=== PATIENT | male | born 1980 | race Caucasian/White ===

== ENCOUNTER 2016-06-10 10:52 | Observation (INO) | payer OTHER ==
--- NOTE | 2016-06-10 11:21 | ERPHSYRPT ---
- History of Present Illness Time Seen by Provider: 06/10/16 11:11 Source: patient, family (mom) Exam Limitations: no limitations Patient Subjective Stated Complaint: PT REPORTS ABCESS TO LEFT GROIN AREA BEGINNING FEW DAYS AGO-REPORTS DRAINAGE OF BROWN-UNSURE OF FEVER Triage Nursing Assessment: PT PINK WARM ET DRY-A & O X 3-HARDENED AREA NOTED- BLOODY DRAINAGE NOTED Physician History: The patient is a 36-year-old male with his mother complaining of an abscess left groin and is been present for at least a week. He states he has a history of small abscesses over his body ever since he was in high school. About 3 days ago he incised the abscess 3 or 4 times with a needle and purulent material was expelled. Since that time only bloody material has been coming out of the wound. The tract of the wound is expanding. He has taken some old amoxicillin for the past few days without any improvement. He denies fever or chills. Timing/Duration: week(s) (1) Quality: painful Severity: severe Location: other (left groin) Possible Causes: no cause identified Associated Symptoms: rash Allergies/Adverse Reactions: No Known Drug Allergies Allergy (Unverified 06/10/16 11:03) Home Medications: No Home Meds 1 ea UD 06/10/16 [History] Hx Tetanus, Diphtheria Vaccination/Date Given: No Hx Influenza Vaccination/Date Given: No Hx Pneumococcal Vaccination/Date Given: No Immunizations Up to Date: Yes - Review of Systems Constitutional: No Fever, No Chills Eyes: No Symptoms Ears, Nose, & Throat: No Symptoms Respiratory: No Cough, No Dyspnea Cardiac: No Chest Pain, No Edema, No Syncope Abdominal/Gastrointestinal: No Abdominal Pain, No Nausea, No Vomiting, No Diarrhea Genitourinary Symptoms: No Dysuria Musculoskeletal: No Back Pain, No Neck Pain Skin: Rash, Other (abscess) Neurological: No Dizziness, No Focal Weakness, No Sensory Changes Psychological: No Symptoms Endocrine: No Symptoms Hematologic/Lymphatic: No Symptoms Immunological/Allergic: No Symptoms All Other Systems: Reviewed and Negative - Past Medical History Pertinent Past Medical History: Yes Cardiac History: Hypertension - Past Surgical History Past Surgical History: Yes - Social History Smoking Status: Current every day smoker How long have you smoked: YRS Drug Use: none Patient Lives Alone: No - Nursing Vital Signs Nursing Vital Signs: Initial Vital Signs Temperature 98.1 F Temperature Source Oral Pulse Rate 90 Respiratory Rate 22 Blood Pressure 160/68 Pain Intensity 2 - Physical Exam General Appearance: no apparent distress, alert Eye Exam: PERRL/EOMI, eyes nml inspection Ears, Nose, Throat Exam: normal ENT inspection, pharynx normal, moist mucous membranes Neck Exam: normal inspection, non-tender, supple, full range of motion Respiratory Exam: normal breath sounds, lungs clear, No respiratory distress Cardiovascular Exam: regular rate/rhythm, normal heart sounds Gastrointestinal/Abdomen Exam: soft, mass, No tenderness Rectal Exam: not done Back Exam: normal inspection, normal range of motion, No CVA tenderness, No vertebral tenderness Extremity Exam: normal inspection, normal range of motion Neurologic Exam: alert, oriented x 3, cooperative, normal mood/affect, sensation nml, No motor deficits Skin Exam: other (left groin abscess with open wound leaking dark blood. No pus. Tenderness. Induration surrounding the draining wound and proximally.) SpO2 Interpretation: normal SpO2: 99 Oxygen Delivery: Room Air Ordered Tests: Active Orders 24 hr Category Date Time Status IV Insertion STAT Care 06/10/16 11:33 Active BLOOD CULTURE Stat Lab 06/10/16 12:10 Received BMP Stat Lab 06/10/16 12:10 Completed CBC W DIFF Stat Lab 06/10/16 12:10 Completed Lactic Acid Urgent Lab 06/10/16 11:33 Completed Manual Differential NC Stat Lab 06/10/16 12:10 Completed Medication Summary Discontinued Medications Generic Name Dose Route Start Last Admin Trade Name Freq PRN Reason Stop Dose Admin Clindamycin HCl/Dextrose 50 mls @ 100 mls/hr 06/10/16 11:37 06/10/16 11:52 Clindamycin-D5w 600 Mg/50 Ml IV 06/10/16 12:06 100 mls/hr STAT ONE Administration Clindamycin HCl/Dextrose Confirm 06/10/16 11:52 Clindamycin-D5w 600 Mg/50 Ml Administered 06/10/16 11:53 Dose 50 mls @ ud IV .STK-MED ONE Lab/Rad Data: Laboratory Result Diagrams 06/10/16 12:10 06/10/16 12:10 Laboratory Results 06/10/16 06/10/16 06/10/16 Range/Units 12:10 12:10 11:33 WBC 11.4 H (4.0-10.5) K/mm3 RBC 4.88 (4.1-5.6) M/mm3 Hgb 13.9 (12.5-18.0) gm/dl Hct 42.3 (42-50) % MCV 86.7 (78-100) fl MCH 28.5 (26-32) pg MCHC 32.9 (32-36) g/dl RDW 14.0 (11.5-14.0) % Plt Count 204 (150-450) K/mm3 MPV 10.5 H (6-9.5) fl Sodium 138 (136-145) mEq/L Potassium 3.3 L (3.5-5.1) mEq/L Chloride 100 (98-107) mEq/L Carbon Dioxide 29.9 (21-32) mEq/L Anion Gap 11.0 (5-15) MEQ/L BUN 10 (9-20) mg/dL Creatinine 0.82 (0.55-1.30) mg/dl Estimated GFR > 60 ML/MIN Glucose 121 H (70-110) MG/DL Lactic Acid 1.2 (0.4-2.0) Calcium 8.3 L (8.5-10.1) mg/dL - Progress Progress: unchanged Discussed with : Gopi Will see patient in: hospital (observation) Counseled pt/family regarding: lab results, diagnosis - Departure Time of Disposition: 14:02 Departure Disposition: Observation (Per Dr Nguyễn with surgery consult) Clinical Impression: Abscess Condition: Good Critical Care Time: No
[2016-06-10] MEDS ORDERED: CLINDAMYCIN-D5W 600 MG/50 ML*** 50 ML IV ONE ×2 (11:37→11:52)
[2016-06-10] MEDS ORDERED: Zofran 4 MG/2 ML VIAL IV ONE (12:00)
[2016-06-10] MEDS ORDERED: SUBLIMAZE 100 MCG/2 ML IV ONE (12:00)
[2016-06-10] MEDS ORDERED: LIDOCAINE HCL 2% 100 MG/5 ML IJ ONE (12:00)
[2016-06-10] MEDS ORDERED: Versed 2 MG/2 ML Injection IV ONE (12:00)
[2016-06-10] MEDS ORDERED: DILAUDID 2 MG INJECTION IV ONE (12:00)
[2016-06-10] MEDS ORDERED: DIPRIVAN 200 MG/20 ML IV ONE (12:00)
[2016-06-10 12:22] LABS: Mean Cell Volume 86.7 fl (78-100); Mean Corpuscular Hemoglobin 28.5 pg (26-32); Mean Platelet Volume 10.5 fl (6-9.5); Platelet Count 204 K/mm3 (150-450); Red Blood Count 4.88 M/mm3 (4.1-5.6); White Blood Count 11.4 K/mm3 (4.0-10.5)
[2016-06-10 12:35] LABS: BLOOD UREA NITROGEN 10 mg/dL (9-20); CHLORIDE 100 mEq/L (98-107); Carbon Dioxide 29.9 mEq/L (21-32); Glucose 121 MG/DL (70-110); Potassium 3.3 mEq/L (3.5-5.1); SODIUM 138 mEq/L (136-145)
[2016-06-10 14:07] LABS: BAND 1 % (0.0-2.0); Platelet Estimate NORMAL (NORMAL); Total Cells Counted 100
[2016-06-10] MEDS ORDERED: Cleocin Phosphate IV 600 MG/4 ML IV SCH (14:37)
[2016-06-10] MEDS: MORPHINE SULFATE 4 MG INJ IV PRN ×2 (15:08→20:36)
[2016-06-10] MEDS ORDERED: Lactated Ringers 2,000 ML IV ONE (16:33)
[2016-06-10] MEDS ORDERED: Pepcid 20 MG VIAL IV ONE (16:50)
[2016-06-10] MEDS ORDERED: BICITRA 30 ML CUP PO ONE (16:50)
[2016-06-10] MEDS ORDERED: Reglan 10 MG/2 ML IV ONE (16:50)
[2016-06-10] MEDS ORDERED: Lactated Ringers 1,000 ML IV SCH (17:00)
[2016-06-10] MEDS: CLINDAMYCIN-D5W 600 MG/50 ML*** 50 ML IV SCH (17:12)
[2016-06-10] MEDS ORDERED: DILAUDID 2 MG INJECTION ONE (18:53)
[2016-06-10] MEDS: NICODERM CQ 14 MG TOP SCH ×2 (21:56→21:59)
[2016-06-11] MEDS: CLINDAMYCIN-D5W 600 MG/50 ML*** 50 ML IV SCH ×3 (00:22→12:08)
[2016-06-11] MEDS: MORPHINE SULFATE 4 MG INJ IV PRN ×3 (00:22→08:59)
[2016-06-11 06:07] LABS: Mean Cell Volume 88.5 fl (78-100); Mean Corpuscular Hemoglobin 27.9 pg (26-32); Mean Platelet Volume 10.6 fl (6-9.5); Platelet Count 193 K/mm3 (150-450); Red Blood Count 4.52 M/mm3 (4.1-5.6); Red Cell Distribution Width 14.1 % (11.5-14.0); White Blood Count 6.7 K/mm3 (4.0-10.5)
[2016-06-11 06:30] LABS: ANION GAP 8.8 MEQ/L (5-15); BLOOD UREA NITROGEN 10 mg/dL (9-20); CHLORIDE 103 mEq/L (98-107); Carbon Dioxide 34.7 mEq/L (21-32); Glucose 109 MG/DL (70-110); Potassium 3.8 mEq/L (3.5-5.1); SODIUM 143 mEq/L (136-145)
[2016-06-11 09:07] LABS: Total Cells Counted 100
[2016-06-11 09:08] LABS: Platelet Estimate NORMAL (NORMAL)
--- NOTE | 2016-06-11 09:33 | PCM.DCORD ---
- Discharge Discharge Date: 06/11/16 Disposition: Home, Self-Care Condition: Good Prescriptions: Clindamycin HCl 300 mg PO QID #28 capsule Lisinopril 5 mg [Zestril 5 MG] 5 mg PO QAM #30 tablet Medications: Home Medications No Home Meds 1 [facility] UD 06/10/16 [Confirmed 06/10/16] Active Inpatient Medications Clindamycin HCl/Dextrose (Clindamycin-D5w 600 Mg/50 Ml) 50 mls @ 100 mls/hr IV Q6HT TANA Stop: 07/10/16 17:59 Last Admin: 06/11/16 05:55 Dose: 100 mls/hr Lactated Ringer's (Lactated Ringers) 1,000 mls @ 50 mls/hr IV .Q20H TANA Stop: 07/10/16 16:59 Last Admin: 06/10/16 17:12 Dose: 50 mls/hr Morphine Sulfate (Morphine Sulfate 4 Mg Inj) 4 mg IV Q4H PRN PRN PRN Reason: PAIN Stop: 06/15/16 14:53 Last Admin: 06/11/16 08:59 Dose: 4 mg Nicotine (Nicoderm Cq 14 Mg) 14 mg TOP Q24H TANA Stop: 07/10/16 17:44 Last Admin: 06/10/16 21:59 Dose: Not Given Additional Instructions: Pain medication per the general surgeon. Follow up with: KSENIA ARELLANO [ACTIVE STAFF] - 1 Week EUSEBIO GUZMAN [ACTIVE STAFF] - 1 Week
[2016-06-11 12:26] VITALS: BP 114/58; PULSE 86; O2SAT 97
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
--- NOTE | 2016-06-12 10:40 | OP ---
SURGERY DATE/TIME: 06/11/2016 180 PREOPERATIVE DIAGNOSIS: Abscess left groin. POSTOPERATIVE DIAGNOSIS: Extensive abscess left groin. PROCEDURE: Incision and drainage left groin. SURGEON: Claudio Estevez M.D. ANESTHESIA: General per Babar Mane CRNA. COMPLICATIONS: None. CONDITION: Stable. DRAINS: Two drains, a 1.5 inch [employer] at the upper portion and an 8 inch lower Sheyla at the lower portion. INDICATION: A 36 year-old requiring drainage. He has pinpoint drainage that is not adequate. He has substantial firmness, induration, swelling, DESCRIPTION OF PROCEDURE: Taken to surgery. Going up this track in a tangential direction which is the direction the track is following. The track was basically following the ilioinguinal ligament starting way down low on the medial thigh and presenting all the way almost to the superior iliac crest. A 3.5 inch incision, 1.5 inches deep immediately over the area. The area basically was a 3 inch circular track measuring 9 inches in length. It was gently irrigated and flushed. Two Sheyla were placed, one all the way to the top and one care home down. These were secured into the incision with 3-0 chromic. The incision was closed with vertical mattress sutures #3-0 chromic. Sterile dressing applied. The patient tolerated the procedure satisfactorily. Findings discussed with the family in the waiting room.
--- NOTE | 2016-06-13 11:59 | DS ---
DISCHARGE DIAGNOSES: 1) LEFT GROIN ABSCESS STATUS POST INCISION AND DRAINAGE. 2) HYPERTENSION. 3) CHEST PAIN. 4) HYPERGLYCEMIA. DISCHARGE PHYSICAL EXAMINATION: VITALS: Temperature current 98F, temperature max 9834F, heart rate 63 to 73, respiratory rate 20 to 22, blood pressure 125 to 148 over 54 to 69. Oxygen saturation 96 to 98% on room air. GENERAL: The patient is a pleasant talkative man sitting up in no acute distress. CVS: He has a regular rate and rhythm. No murmurs, gallops or rubs. CHEST: Clear to auscultation bilaterally. No crackles or wheezes. ABDOMEN: Soft, nontender, nondistended with normal bowel sounds. EXTREMITIES: No clubbing, cyanosis or edema. : His left groin he has a long incision with sutures with a drain and draining some bloody fluid. The patient reports marked improvement in the pain. There is no induration around this. HOSPITAL COURSE: 1) Left groin abscess. He was started on clindamycin IV and the surgeon sent him to surgery for incision and drainage shortly after his admission to the hospital and this went well. There is a gram stain and culture pending with no results back yet. Will plan to discharge him on clindamycin 300 mg p.o. four times a day for 7 days and follow up with myself and also the general surgeon this week. He has pain medication ordered by the general surgeon. 2) Hypertension. His blood pressure was a little bit high during his hospitalization and started 5 mg of lisinopril p.o. q.a.m. and follow up in the clinic. 3) Chest pain. He had an EKG with normal sinus rhythm. He may need to consider a stress test as an outpatient if he continues to have chest pain. When he reported the chest pain he was extremely anxious about his surgery. 4) Hypoglycemia. The patient reported history of diabetes. His hemoglobin A1C was checked and was 5.8. The patient was instructed to avoid concentrated sweets or drinks that are high in sugar. DISCHARGE MEDICATIONS: Clindamycin as mentioned above and hydrocodone per the general surgeon. FOLLOW UP: Follow up with myself in one week and Dr. Estevez in one week. DISPOSITION: The patient was discharged home in fair condition.
== END 2016-06-11 15:15 | disposition home or self-care (01) ==
LOC: ED 10:52 → MED SURG 14:33
PROVIDERS: ADMIT Internal Medicine; ATTEND Internal Medicine
PROC: 0Y9600Z Drainage of Left Inguinal Region with Drainage Device, Open Approach (ICD-10-PCS; principal; 2016-06-11)
DX: L02.214 Cutaneous abscess of groin (principal); I10 Essential (primary) hypertension; R07.9 Chest pain, unspecified; R73.9 Hyperglycemia, unspecified
CPT/HCPCS: 00400; 36000; 36415; 80048; 83036; 83605; 85025; 87040; 87070; 93005; 96365; 99140; 99284; G0378; J1170; J2250; J2270; J2405; J2704; J3010